=== PATIENT | male | born 1995 | race Hispanic/Latino ===

== ENCOUNTER 2016-04-12 15:05 | Emergency (ER) | payer OTHER ==
[~2016-04-12 15:05] MED LIST: Escitalopram Oxalate PO; LEXA5TAB13 PO; OLAN5TAB PO; no home medications
[2016-04-12 16:28] LABS: MEAN CORPUSCULAR HEMOGLOBIN 31.6 pg (27.0-33.0); MEAN CORPUSCULAR HGB CONC 35.1 g/dl (32.0-36.5); MEAN CORPUSCULAR VOLUME 90.1 fl (80.0-96.0); RED CELL DISTRIBUTION WIDTH 12.6 % (11.5-14.5); WHITE BLOOD COUNT 6.2 K/mm3 (4.0-10.0)
[2016-04-12 16:33] LABS: ALBUMIN 4.6 GM/DL (3.2-5.2); ALBUMIN/GLOBULIN RATIO 1.28 (1.00-1.93); ALKALINE PHOSPHATASE 106 U/L (45-117); ALT/SGPT 23 U/L (12-78); ANION GAP 9 MEQ/L (8-16); AST/SGOT 18 U/L (15-37); BILIRUBIN,DIRECT 0.2 MG/DL (0.0-0.2); BILIRUBIN,TOTAL 0.8 MG/DL (0.2-1.0); BLOOD UREA NITROGEN 18 MG/DL (7-18); CARBON DIOXIDE LEVEL 26 MEQ/L (21-32); CHLORIDE LEVEL 107 MEQ/L (98-107); CREATININE FOR GFR 1.36 MG/DL (0.70-1.30); GLUCOSE, FASTING 92 MG/DL (70-105); POTASSIUM SERUM 3.8 MEQ/L (3.5-5.1); SODIUM LEVEL 142 MEQ/L (136-145); TOTAL PROTEIN 8.2 GM/DL (6.4-8.2)
[2016-04-12 16:40] LABS: CONTROL LINE INT CTR LINE PRESENT; METHADONE URINE NEGATIVE (NEGATIVE); TRICYCLIC ANTIDEPRESS URINE NEGATIVE (NEGATIVE)
--- NOTE | 2016-04-13 00:36 | EDDOCDS ---
Physician Documentation [facility] Name: Tomás Pereyra Age: 20 yrs Sex: Male : 1995 Arrival Date: 04/12/2016 Time: 15:05 Bed OBSERVATION Private MD: Disposition: 04/12/16 21:15 Transfer ordered to [facility]. Diagnosis are Suicidal ideations, Major depressive disorder, recurrent. - Reason for transfer: Higher level of care. - Accepting physician is Dr Maria. - Condition is Stable. - Problem is an ongoing problem. - Symptoms have improved. Historical: - Allergies: no known allergies; - Home Meds: 1. none - PMHx: inpatient BHU (August 2015); - PSHx: none; - Social history: Smoking status: Patient states was never smoker of tobacco. No barriers to communication noted, The patient speaks fluent Upper Sorbian. - Family history: Not pertinent. - : The pt / caregiver states he / she is not on anticoagulants. Home medication list is obtained from the patient. - Exposure Risk Screening:: None identified. Vital Signs: 04/12 15:14 BP 133 / 66; Pulse 67; Resp 18; Temp 98(O); Pulse Ox 98% on R/A; Weight 88.45 kg / 195 mk4 lbs; Height 5 ft. 10 in. (177.80 cm); 20:26 BP 134 / 63; Pulse 72; Resp 18; Temp 97.8(TE); Pulse Ox 98% on R/A; Pain 0/10; rw1 04/13 00:33 BP 124 / 58; Pulse 62; Resp 16; Temp 96.9(O); Pulse Ox 97% on R/A; Pain 0/10; rw1 04/12 15:14 Body Mass Index 27.98 (88.45 kg, 177.80 cm) mk4 MDM: 04/12 15:24 Consult PFS/PSA/Grinder Outside Diameter ordered. br1 15:24 Consult PFS/PSA/Grinder Outside Diameter: Patient's case requires discussion with on-call br1 Psychiatrist ordered. 15:24 PSA/PFS to call Nursing Manager Latin, to enter patient data on [place] Safe Act if patient br1 involuntarily admitted or transferred for SI or HI ordered. 15:24 Confirm accurate psychiatric medication list and times of last dosage ordered. br1 15:24 Detain Pt Until Medically/PFS Cleared ordered. br1 15:26 Acetaminophen Level Ordered. EDMS 15:26 Basic Metabolic Profile Ordered. EDMS 15:26 Complete Blood Count Ordered. EDMS 15:26 Drug Eval Toxicology ED Only Ordered. EDMS 15:26 Ethyl Alcohol (ethanol) Ordered. EDMS 15:26 Liver Profile Ordered. EDMS 15:26 Salicylate Level Ordered. EDMS 15:26 Thyroid Stimulating Hormone Ordered. EDMS 15:45 Consult PFS/PSA/Grinder Outside Diameter complete. mk4 15:45 Consult PFS/PSA/Grinder Outside Diameter: Patient's case requires discussion with on-call mk4 Psychiatrist complete. 15:45 PSA/PFS to call Nursing Manager Latin, to enter patient data on [place] Safe Act if patient mk4 involuntarily admitted or transferred for SI or HI complete. 15:51 Financial registration complete. zo 16:37 REGULAR DIET PLASTIC HILL+DIET ordered. EDMS 17:00 [facility] Payment Agreement was scanned into [employer] and attached to record. zo 17:44 ECG WITH READING ER PHYS+CARDIAG ordered. EDMS 17:47 Acetaminophen Level Reviewed. br1 17:47 Basic Metabolic Profile Reviewed. br1 17:47 Salicylate Level Reviewed. br1 17:47 Complete Blood Count Reviewed. br1 17:47 Drug Eval Toxicology ED Only Reviewed. br1 17:47 Ethyl Alcohol (ethanol) Reviewed. br1 17:47 Liver Profile Reviewed. br1 17:47 Thyroid Stimulating Hormone Reviewed. br1 18:15 Consult PFS/PSA/Socail Worker: Cleared medically for eval ordered. br1 18:21 Other: [facility] S Clinic note was scanned into [employer] and attached to record. jl 18:25 Consult PFS/PSA/Socail Worker: Cleared medically for eval complete. jl 18:58 Transition of care: After a detail discussion of the patient's case, care is br1 transferred to ED Physician, Dr. Humphrey. 22:41 [facility] Legal paperwork was scanned into [employer] and attached to record. jl Signatures: Dispatcher [employer] EDMS Abram Nunez, PSA PSA jl Fermin Earl,CORE FILER CORE FILER rw1 Quoc Son Brian, MD MD br1 Tyrone Humphrey DO DO cs11 Melissa Elizondo RN RN mk4 The chart was reviewed and I authenticate all verbal orders and agree with the evaluation and treatment provided.Attachments: 17:00 [facility] Payment Agreement zo MTDD
--- NOTE | 2016-04-13 00:36 | EDDOCDS ---
Nurse's Notes [facility] Name: Tomás Pereyra Age: 20 yrs Sex: Male : 1995 Arrival Date: 04/12/2016 Time: 15:05 Bed OBSERVATION Private MD: Diagnosis: Suicidal ideations;Major depressive disorder, recurrent Presentation: 04/12 15:12 Presenting complaint: Patient states[facility] feeling of suicidal. Mental Health Triage Level: Level 2: The patient displays active suicidal ideations. Adult Sepsis Screening: The patient does not have new or worsening altered mentation. Patient's respiratory rate is less than 22. Systolic blood pressure is greater than 100. Patient has a qSOFA score of 0- Negative Sepsis Screen. Mental Health Triage Level: Level 2: The patient displays active suicidal ideations. Suicide/Homicide risk assessment- The patient admits to and/or has been reported to be having suicidal ideations. Patient denies SI and HI but presents with another emotional, behavioral or other mental health complaint. The patient reports that he/she has not been admitted to an inpatient mental health facility in the last 30 days. The patient reports that he/she does not have a recent or current history of substance abuse. The patient reports that he/she has a prior history of suicide attempt and/or organized plan. The patient reports that he/she has not experienced a significant life altering event in the last 30 days. The patient reports that he/she lacks adequate social support. The patient reports he/she has no significant chronic medical condition(s). 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 Transition of care: patient was not received from another setting of care. 15:12 Acuity: BJ Level 3 mk4 15:12 Method Of Arrival: Ambulance mk4 Triage Assessment: 15:14 General: Appears in no apparent distress. Pain: Denies pain. HIV screening NA for this mk4 visit Offered previously. Historical: - Allergies: no known allergies; - Home Meds: 1. none - PMHx: inpatient BHU (August 2015); - PSHx: none; - Social history: Smoking status: Patient states was never smoker of tobacco. No barriers to communication noted, The patient speaks fluent American. - Family history: Not pertinent. - : The pt / caregiver states he / she is not on anticoagulants. Home medication list is obtained from the patient. - Exposure Risk Screening:: None identified. Screenin:11 Screening information is obtained from the patient. Fall risk: No risks identified. mk4 Assistance ADL's: requires no assistance with activities of daily living. Abuse/DV Screen: The patient / caregiver reports he/she is: not in a situation that causes fear, pain or injury. Nutritional screening: No deficits noted. Advance Directives: Currently, there is no health care proxy. There is no active DNR order. There is no living will. There is no Power of Customer Energy Specialist. Advance directive information has not previously been placed in an [facility] medical record. home support is adequate. Assessment: 15:11 General: Appears in no apparent distress, Behavior is flat, quiet, pt arrived by EMS mk4 from [facility]. Pain: Denies pain. Neurological: Level of Consciousness is awake, alert. Respiratory: Airway is patent Respiratory effort is even, unlabored, Respiratory pattern is regular. 16:15 General: Appears in no apparent distress. General: Behavior is flat, quiet. mk4 Respiratory: Airway is patent Respiratory effort is even, unlabored. 17:45 General: Appears in no apparent distress, comfortable, Behavior is cooperative, quiet, mk4 escort remains with pt. 18:22 General: Appears in no apparent distress, comfortable, Behavior is cooperative, dinner mk4 tray provided . 18:40 Reassessment: Patient appears in no apparent distress at this time. Patient denies pain mk4 at this time. 19:23 General: Appears in no apparent distress, Behavior is cooperative. Pain: Denies pain. mgs Neurological: Level of Consciousness is awake, alert, Oriented to person, place, time. Cardiovascular: Capillary refill < 3 seconds Heart tones S1 S2 present. Respiratory: Airway is patent Respiratory effort is even, unlabored, Respiratory pattern is regular, symmetrical. Derm: Skin is normal. 20:26 General: Appears in no apparent distress, comfortable, Behavior is appropriate for age, rw1 cooperative, pleasant. Pain: Denies pain. Neurological: Level of Consciousness is awake, alert, obeys commands, Oriented to person, place, time. Respiratory: Airway is patent Respiratory effort is even, unlabored. Derm: Skin is normal. 21:25 Reassessment: Patient appears in no apparent distress at this time. awake resting rw1 quietly on stretcher, safety maintained will monitor.. 22:28 Reassessment: Patient appears in no apparent distress at this time. awake resting rw1 quietly on stretcher, safety maintained will monitor.. 23:29 General: Appears in no apparent distress, comfortable, Behavior is resting quietly on rw1 stretcher, safety maintained. Respiratory: Airway is patent Respiratory effort is even, unlabored. Derm: Skin is normal. 04/13 00:30 General: Appears in no apparent distress, Behavior is cooperative. Neurological: Level mgs of Consciousness is awake, alert, Oriented to person, place, time. Cardiovascular: Capillary refill < 3 seconds. Respiratory: Airway is patent Respiratory effort is even, unlabored, Respiratory pattern is regular, symmetrical. Derm: Skin is normal. Mental Health Eval: 04/12 17:04 Mental health consult is initiated at 16:30. 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 [facility] Behavioral Health: The patient is not an established patient of [facility] Behavioral Health. Referral Information: Evaluation referral is generated by the patient's therapist [facility]. The patient was referred for evaluation because he was seen today at [facility] by his therapist, where he admitted to having SI, with plan & intent. Subjective: The patients chief complaint is "I admitted some thoughts I've been having to my therapist today". Delusions are denied. Patient's mood is depressed & hopeless. Hallucinations are denied. Patient saw his therapist today, where he reports admitting to having active thoughts of suicide, including a plan. He states that he has been depressed on and off since his teenaged years. This depression has included thoughts of suicide, however never to the point of planning his before now. 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 He states that he formulated this plan late last week, knowing that he'd have all of this week to get his affairs in order before leaving. He states that this was precipitated by his notification late last week that his application to [place] had been denied. He describes feeling hopeless, with no other options. 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 He denies h/o deployments & has none "officially" scheduled. He denies having any thoughts of harming others, however clearly has suicidal plan & intent. Mental Health history: depression, sleep disturbance, suicide ideation with no attempts, gestures or self-injury Mental Health Admissions: [facility]: 08/2015 Current Outpatient Mental Health Services: Psychiatrist / Agency: [facility]. Therapist / Agency: [facility]. Current living environment is The patient currently lives in a [facility]. Patient presents to Emergency Department with the following symptoms within the past 2 weeks: depressed mood, feelings of helplessness/hopelessness, sleep disturbance - erratic suicidal ideation with plan for gunshot. Substance abuse: Pt denies. Mental status exam: Patients appearance is appropriate, Patient's behavior is cooperative, Speech is unspontaneous Affect is restricted. Mood is depressed. Hallucinations are denied. Appetite is normal. Memory is good. Energy level is poor. Content of thought is normal. Thought process is intact. Cognitive level is oriented to person, place, time and situation Patient's insight is fair. Judgement is poor. Rapport with interviewer is good. Suicidal Ideation present with a plan to kill self by gunshot. Homicidal ideation is denied. Disposition: Medically cleared for disposition by David Lin MD Psychiatric Consult is performed by phone with Dr Bob Harrington MD. [facility] Admission Criteria: The patient is experiencing suicidal ideation. The patient requires continuous observation and/or control to protect self, others or property. The patient's care requires a multi-modal treatment plan under close supervision and coordination due to the complexity and severity of the patient's symptoms. Legal Status: Patient's legal status will be [facility] Services admission: 937. [place] Safe Act: [place] Safe Act is applicable to this patient. The patient poses a risk to self or other and the Nursing Signal Repairer has been notified. He/She will enter the patient's data. DSM-V Differential Diagnosis: Major Depressive Disorder recurrent episode (F33.0) severe (F33.2). Insurance Pre-Certification: Not Required. 18:22 Awaiting: bed availability. Chart has [facility] to [facility] [place], which has jl advised that they have 2 beds available & 2 referrals from other hospitals to be reviewed ahead of this patient. Other surrounding area hospitals are currently at capacity. Patient to remain in ED, pending bed availability. 18:25 Narrative: Patient's Jorge may be contacted as follows: 1LT Mela Schofield ([phone]). jl 22:23 Narrative: Patient has been accepted at the [facility] [place] on 2PC. [facility] ETA is jl 12:15-12:30. Vital Signs: 15:14 BP 133 / 66; Pulse 67; Resp 18; Temp 98(O); Pulse Ox 98% on R/A; Weight 88.45 kg; mk4 Height 5 ft. 10 in. (177.80 cm); 20:26 BP 134 / 63; Pulse 72; Resp 18; Temp 97.8(TE); Pulse Ox 98% on R/A; Pain 0/10; rw1 04/13 00:33 BP 124 / 58; Pulse 62; Resp 16; Temp 96.9(O); Pulse Ox 97% on R/A; Pain 0/10; rw1 04/12 15:14 Body Mass Index 27.98 (88.45 kg, 177.80 cm) 4 Vitals: 04/12 15:14 Log In Time N/A - ambulance arrival. 4 ED Course: 15:07 Patient visited by July Gibson. mm15 15:07 Patient moved to [facility] mm15 15:11 David Lin MD is Attending Physician. br1 15:11 Patient moved to [facility] rb 15:11 The patient / caregiver is instructed regarding the plan of care and ED course. mk4 15:11 No IV's were initiated during this patient's visit. No procedures done that require [facility] assistance. 15:14 Triage Initiated mk4 15:31 Patient visited by Junaid Maza. dpm 15:31 Pt greeted and oriented to ED. Patient advised of names of staff involved in care, dpm location of call dum[place], wait times and NPO status. Patient has correct armband on for positive identification. Placed in gown. Placed in psych safe attire. Bed in low position. Security observing. Property removed, inventory done, secured in belongings bag- placed in locked locker. Placed in locker 4. Psych Safety Check: Location: Psych Room. Visual Assessment: Cooperative. 15:40 Patient visited by David Lin MD. br1 15:45 Patient visited by Junaid Maza. dpm 15:45 Acetaminophen Level Sent. mk4 15:45 Basic Metabolic Profile Sent. mk4 15:45 Complete Blood Count Sent. mk4 15:45 Ethyl Alcohol (ethanol) Sent. mk4 15:45 Liver Profile Sent. mk4 15:45 Salicylate Level Sent. mk4 15:45 Thyroid Stimulating Hormone Sent. mk4 16:01 Patient visited by Junaid Maza. dpm 16:09 Drug Eval Toxicology ED Only Sent. dpm 16:16 Patient visited by Junaid Maza. dpm 16:31 Patient visited by Junaid Maza. dpm 16:48 Patient visited by Abram Nunez PSA. jl 17:00 [facility] Payment Agreement was scanned into [employer] and attached to record. zo 17:02 Patient visited by Junaid Maza. dpm 17:20 Patient visited by Junaid Maza. dpm 17:35 Patient visited by Junaid Maza. dpm 17:53 Patient visited by Junaid Maza. dpm 18:08 Patient visited by Junaid Maza. dpm 18:17 Patient moved to OBSERVATION br1 18:21 Other: [facility] S Clinic note was scanned into [employer] and attached to record. jl 18:35 Patient visited by Junaid Maza. dpm 18:53 Patient visited by Junaid Maza. dpm 19:03 Patient visited by Austin Yeh. tr 19:14 Patient visited by Austin Yeh. tr 19:19 Aries Pickett,ROMINA is Primary Nurse. mgs 19:24 Patient visited by Aries Pickett RN. mgs 19:29 Patient visited by Austin Yeh. tr 19:34 Patient visited by Austin Yeh. tr 19:49 Attending Physician role handed off by David Lin MD cs11 19:49 Tyrone Humphrey DO is Attending Physician. cs11 20:01 Patient visited by Austin Yeh. tr 20:18 Patient visited by Austin Yeh. tr 20:32 Patient visited by Austin Yeh. tr 20:46 Patient visited by Austin Yeh. tr 21:00 Patient visited by Austin Yeh. tr 21:14 Patient visited by Austin Yeh. tr 21:30 Patient visited by Tim. Rao tr 22:00 Patient visited by Tim. Rao tr 22:28 Patient visited by Tim. Rao tr 22:41 [facility] Legal paperwork was scanned into [employer] and attached to record. jl 22:45 Patient visited by Austin Yeh. tr 23:01 Patient visited by Tim. Rao tr 23:17 Patient visited by Tim. Rao tr 23:30 Patient visited by Tim. Rao tr 23:44 Patient visited by Tim. Rao tr 04/13 00:00 Patient visited by Austin Yeh. tr 00:18 Patient visited by Tim. Rao tr 00:31 Patient visited by Aries Pickett RN. mgs Attachments: 22:41 [facility] Legal paperwork jl Order Results: Lab Order: Acetaminophen Level; SPEC'M 04/12/16 14:52 Test: ACETAMINOPHEN LEVEL; Value: < 2.0; Range: 10.0-30.0; Abnormal: Below low normal; Units: UG/ML; Status: F Lab Order: Basic Metabolic Profile; SPEC'M 04/12/16 14:52 Test: GLUCOSE, FASTING; Value: 92; Range: 70-105; Units: MG/DL; Status: F Test: BLOOD UREA NITROGEN; Value: 18; Range: 7-18; Units: MG/DL; Status: F Test: CREATININE FOR GFR; Value: 1.36; Range: 0.70-1.30; Abnormal: Above high normal; Units: MG/DL; Status: F Test: SODIUM LEVEL; Value: 142; Range: 136-145; Units: MEQ/L; Status: F Test: POTASSIUM SERUM; Value: 3.8; Range: 3.5-5.1; Units: MEQ/L; Status: F Test: CHLORIDE LEVEL; Value: 107; Range: 98-107; Units: MEQ/L; Status: F Test: CARBON DIOXIDE LEVEL; Value: 26; Range: 21-32; Units: MEQ/L; Status: F Test: ANION GAP; Value: 9; Range: 8-16; Units: MEQ/L; Status: F Test: CALCIUM LEVEL; Value: 9.0; Range: 8.5-10.1; Units: MG/DL; Status: F Lab Order: Complete Blood Count; SPEC'M 04/12/16 14:52 Test: WHITE BLOOD COUNT; Value: 6.2; Range: 4.0-10.0; Units: K/mm3; Status: F Test: RED BLOOD COUNT; Value: 4.94; Range: 4.30-6.10; Units: M/mm3; Status: F Test: HEMOGLOBIN; Value: 15.6; Range: 14.0-18.0; Units: g/dl; Status: F Test: HEMATOCRIT; Value: 44.6; Range: 42.0-52.0; Units: %; Status: F Test: MEAN CORPUSCULAR VOLUME; Value: 90.1; Range: 80.0-96.0; Units: fl; Status: F Test: MEAN CORPUSCULAR HEMOGLOBIN; Value: 31.6; Range: 27.0-33.0; Units: pg; Status: F Test: MEAN CORPUSCULAR HGB CONC; Value: 35.1; Range: 32.0-36.5; Units: g/dl; Status: F Test: RED CELL DISTRIBUTION WIDTH; Value: 12.6; Range: 11.5-14.5; Units: %; Status: F Test: PLATELET COUNT, AUTOMATED; Value: 271; Range: 150-450; Units: k/mm3; Status: F Lab Order: Drug Eval Toxicology ED Only; SPEC'M 04/12/16 15:36 Test: AMPHETAMINES LEVEL URINE; Value: NEGATIVE; Range: NEGATIVE; Status: F Test: BARBITURATES URINE; Value: NEGATIVE; Range: NEGATIVE; Status: F Test: BENZODIAZEPINES URINE; Value: NEGATIVE; Range: NEGATIVE; Status: F Test: CANNABINOIDS URINE; Value: NEGATIVE; Range: NEGATIVE; Status: F Test: COCAINE METABOLITE URINE; Value: NEGATIVE; Range: NEGATIVE; Status: F Test: METHADONE URINE; Value: NEGATIVE; Range: NEGATIVE; Status: F Test: OPIATES URINE; Value: NEGATIVE; Range: NEGATIVE; Status: F Test: TRICYCLIC ANTIDEPRESS URINE; Value: NEGATIVE; Range: NEGATIVE; Status: F Test Note: ; ALL PRESUMPTIVE POSITIVE FINDINGS ARE UNCONFIRMED NORMAL VALUES THRESHOLD IN NG/ML AMPHETAMINES 1000 METHAMPHETAMINES 1000 BARBITURATES 300 BENZODIAZEPINES 300 CANNABINOIDS (THC) 50 COCAINE METABOLITE 300 METHADONE 300 OPIATES 300 PHENCYCLIDINE 25 TRICYCLIC ANTIDEPRESSANTS 1000 RESULTS ARE FOR MEDICAL PURPOSES ONLY. ALL URINE SPECIMENS WILL BE SAVED FOR 3 DAYS. IF CONFIRMATION OF A PRESUMPTIVE POSTIVE SCREEN RESULT IS DESIRED, CALL CHEMISTRY ([phone]) AND REQUEST URINE TO BE SENT TO REFERENCE LAB. FOR A LIST OF CLOSELY RELATED COMPOUNDS PLEASE CALL THE LAB. Lab Order: Ethyl Alcohol (ethanol); SPEC' 04/12/16 14:52 Test: ETHYL ALCOHOL (ETHANOL); Value: < 0.003; Range: 0.000-0.010; Units: %; Status: F Lab Order: Liver Profile; [facility]' 04/12/16 14:52 Test: AST/SGOT; Value: 18; Range: 15-37; Units: U/L; Status: F Test: ALT/SGPT; Value: 23; Range: 12-78; Units: U/L; Status: F Test: ALKALINE PHOSPHATASE; Value: 106; Range: 45-117; Units: U/L; Status: F Test: BILIRUBIN,TOTAL; Value: 0.8; Range: 0.2-1.0; Units: MG/DL; Status: F Test: BILIRUBIN,DIRECT; Value: 0.2; Range: 0.0-0.2; Units: MG/DL; Status: F Test: TOTAL PROTEIN; Value: 8.2; Range: 6.4-8.2; Units: GM/DL; Status: F Test: ALBUMIN; Value: 4.6; Range: 3.2-5.2; Units: GM/DL; Status: F Test: ALBUMIN/GLOBULIN RATIO; Value: 1.28; Range: 1.00-1.93; Status: F Lab Order: Salicylate Level; [facility]' 04/12/16 14:52 Test: SALICYLATE LEVEL; Value: < 1.7; Range: 5.0-30.0; Abnormal: Below low normal; Units: MG/DL; Status: F Lab Order: Thyroid Stimulating Hormone; SPEC' 04/12/16 14:52 Test: THYROID STIMULATING HORMONE; Value: 2.110; Range: 0.463-3.98; Units: uIU/ML; Status: F Outcome: 21:15 ER care complete, transfer ordered by Provider. cs11 22:16 Admission hand-off: Report called to Chinedu Carr RN at [facility]. mgs 04/13 00:33 Discharge Assessment: Patient awake, alert and oriented x 3. No cognitive and/or rw1 functional deficits noted. Patient verbalized understanding of disposition instructions. patient administered narcotics - no. The following High Risk Discharge criteria are identified: Transferred to [facility] [place]. by EMS ground [facility] ambulance report to accompanying personnel Christian Palmer EMT and [employer] Electrical Person. Condition: stable. No special radiology studies were completed. 00:36 Patient left the ED. rw1 Signatures: Josselin Lerma, BLANCO PSA rb Abram Nunez, PSA PSA jl Austin Yeh Robert,PRESSER HAND PRESSER HAND rw1 Quoc Son Brian, MD MD br1 Junaid Maza dpTyrone Perez, DO cs11 July Gibson mm15 Melissa Elizondo RN RN mk4 Aries Pickett,ROMINA RN mgs Corrections: (The following items were deleted from the chart) 04/12 18:41 18:22 General: Appears in no apparent distress, comfortable, Behavior is cooperative, mk4 dinner tray provided . mk4 TONY
--- NOTE | 2016-04-14 09:59 | ECGEPIP ---
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
--- NOTE | 2016-04-15 01:38 | EDDOCDS ---
Physician Documentation [facility] Name: Tomás Pereyra Age: 20 yrs Sex: Male : 1995 Arrival Date: 04/12/2016 Time: 15:05 Bed OBSERVATION Private MD: Disposition: 04/12/16 21:15 Transfer ordered to [facility]. Diagnosis are Suicidal ideations, Major depressive disorder, recurrent. - Reason for transfer: Higher level of care. - Accepting physician is Dr Maria. - Condition is Stable. - Problem is an ongoing problem. - Symptoms have improved. Historical: - Allergies: no known allergies; - Home Meds: 1. none - PMHx: inpatient BHU (August 2015); - PSHx: none; - Social history: Smoking status: Patient states was never smoker of tobacco. No barriers to communication noted, The patient speaks fluent Faroese. - Family history: Not pertinent. - : The pt / caregiver states he / she is not on anticoagulants. Home medication list is obtained from the patient. - Exposure Risk Screening:: None identified. Vital Signs: 04/12 15:14 BP 133 / 66; Pulse 67; Resp 18; Temp 98(O); Pulse Ox 98% on R/A; Weight 88.45 kg / 195 mk4 lbs; Height 5 ft. 10 in. (177.80 cm); 20:26 BP 134 / 63; Pulse 72; Resp 18; Temp 97.8(TE); Pulse Ox 98% on R/A; Pain 0/10; rw1 04/13 00:33 BP 124 / 58; Pulse 62; Resp 16; Temp 96.9(O); Pulse Ox 97% on R/A; Pain 0/10; rw1 04/12 15:14 Body Mass Index 27.98 (88.45 kg, 177.80 cm) mk4 MDM: 04/12 15:24 Consult PFS/PSA/Hearse Driver ordered. br1 15:24 Consult PFS/PSA/Hearse Driver: Patient's case requires discussion with on-call br1 Psychiatrist ordered. 15:24 PSA/PFS to call Nursing Second Watch Sergeant, to enter patient data on [place] Safe Act if patient br1 involuntarily admitted or transferred for SI or HI ordered. 15:24 Confirm accurate psychiatric medication list and times of last dosage ordered. br1 15:24 Detain Pt Until Medically/PFS Cleared ordered. br1 15:26 Acetaminophen Level Ordered. EDMS 15:26 Basic Metabolic Profile Ordered. EDMS 15:26 Complete Blood Count Ordered. EDMS 15:26 Drug Eval Toxicology ED Only Ordered. EDMS 15:26 Ethyl Alcohol (ethanol) Ordered. EDMS 15:26 Liver Profile Ordered. EDMS 15:26 Salicylate Level Ordered. EDMS 15:26 Thyroid Stimulating Hormone Ordered. EDMS 15:45 Consult PFS/PSA/Hearse Driver complete. mk4 15:45 Consult PFS/PSA/Hearse Driver: Patient's case requires discussion with on-call mk4 Psychiatrist complete. 15:45 PSA/PFS to call Nursing Second Watch Sergeant, to enter patient data on [place] Safe Act if patient mk4 involuntarily admitted or transferred for SI or HI complete. 15:51 Financial registration complete. zo 16:37 REGULAR DIET PLASTIC HILL+DIET ordered. EDMS 17:00 [facility] [place] into [employer] and attached to record. zo 17:44 ECG WITH READING ER PHYS+CARDIAG ordered. EDMS 17:47 Acetaminophen Level Reviewed. br1 17:47 Basic Metabolic Profile Reviewed. br1 17:47 Salicylate Level Reviewed. br1 17:47 Complete Blood Count Reviewed. br1 17:47 Drug Eval Toxicology ED Only Reviewed. br1 17:47 Ethyl Alcohol (ethanol) Reviewed. br1 17:47 Liver Profile Reviewed. br1 17:47 Thyroid Stimulating Hormone Reviewed. br1 18:15 Consult PFS/PSA/Socail Worker: Cleared medically for eval ordered. br1 18:21 Other: [facility] note was scanned into [employer] and attached to record. jl 18:25 Consult PFS/PSA/Socail Worker: Cleared medically for eval complete. jl 18:58 Transition of care: After a detail discussion of the patient's case, care is br1 transferred to ED Physician, Dr. Humphrey. 22:41 [facility] Legal paperwork was scanned into [employer] and attached to record. jl Signatures: Dispatcher [employer] EDMS Abram Nunez, PSA PSA jl Fermin Earl,MANAGER FLOOR MANAGER FLOOR rw1 Quoc Son Brian, MD MD br1 Tyrone Humphrey DO DO cs11 Melissa Elizondo RN RN mk4 The chart was reviewed and I authenticate all verbal orders and agree with the evaluation and treatment provided.Attachments: 17:00 [facility] Payment Agreement zo Chart Complete MTDD
--- NOTE | 2016-04-15 01:38 | EDDOCDS ---
Physician Documentation [facility] Name: Tomás Pereyra Age: 20 yrs Sex: Male : 1995 Arrival Date: 04/12/2016 Time: 15:05 Bed OBSERVATION Private MD: Disposition: 04/12/16 21:15 Transfer ordered to [facility]. Diagnosis are Suicidal ideations, Major depressive disorder, recurrent. - Reason for transfer: Higher level of care. - Accepting physician is Dr Maria. - Condition is Stable. - Problem is an ongoing problem. - Symptoms have improved. Historical: - Allergies: no known allergies; - Home Meds: 1. none - PMHx: inpatient BHU (August 2015); - PSHx: none; - Social history: Smoking status: Patient states was never smoker of tobacco. No barriers to communication noted, The patient speaks fluent Romanian. - Family history: Not pertinent. - : The pt / caregiver states he / she is not on anticoagulants. Home medication list is obtained from the patient. - Exposure Risk Screening:: None identified. Vital Signs: 04/12 15:14 BP 133 / 66; Pulse 67; Resp 18; Temp 98(O); Pulse Ox 98% on R/A; Weight 88.45 kg / 195 mk4 lbs; Height 5 ft. 10 in. (177.80 cm); 20:26 BP 134 / 63; Pulse 72; Resp 18; Temp 97.8(TE); Pulse Ox 98% on R/A; Pain 0/10; rw1 04/13 00:33 BP 124 / 58; Pulse 62; Resp 16; Temp 96.9(O); Pulse Ox 97% on R/A; Pain 0/10; rw1 04/12 15:14 Body Mass Index 27.98 (88.45 kg, 177.80 cm) mk4 MDM: 04/12 15:24 Consult PFS/PSA/Forest Fire Equipment Operator ordered. br1 15:24 Consult PFS/PSA/Forest Fire Equipment Operator: Patient's case requires discussion with on-call br1 Psychiatrist ordered. 15:24 PSA/PFS to call Nursing Beach Patrol Lieutenant, to enter patient data [place] Safe [place] if patient br1 involuntarily admitted or transferred for SI or HI ordered. 15:24 Confirm accurate psychiatric medication list and times of last dosage ordered. br1 15:24 Detain Pt Until Medically/PFS Cleared ordered. br1 15:26 Acetaminophen Level Ordered. EDMS 15:26 Basic Metabolic Profile Ordered. EDMS 15:26 Complete Blood Count Ordered. EDMS 15:26 Drug Eval Toxicology ED Only Ordered. EDMS 15:26 Ethyl Alcohol (ethanol) Ordered. EDMS 15:26 Liver Profile Ordered. EDMS 15:26 Salicylate Level Ordered. EDMS 15:26 Thyroid Stimulating Hormone Ordered. EDMS 15:45 Consult PFS/PSA/Forest Fire Equipment Operator complete. mk4 15:45 Consult PFS/PSA/Forest Fire Equipment Operator: Patient's case requires discussion with on-call mk4 Psychiatrist complete. 15:45 PSA/PFS to call Nursing Beach Patrol Lieutenant, to enter patient data on [place] Safe Act if patient mk4 involuntarily admitted or transferred for SI or HI complete. 15:51 Financial registration complete. zo 16:37 REGULAR DIET PLASTIC HILL+DIET ordered. EDMS 17:00 [facility] [place] was [place] into [employer] and attached to record. zo 17:44 ECG WITH READING ER PHYS+CARDIAG ordered. EDMS 17:47 Acetaminophen Level Reviewed. br1 17:47 Basic Metabolic Profile Reviewed. br1 17:47 Salicylate Level Reviewed. br1 17:47 Complete Blood Count Reviewed. br1 17:47 Drug Eval Toxicology ED Only Reviewed. br1 17:47 Ethyl Alcohol (ethanol) Reviewed. br1 17:47 Liver Profile Reviewed. br1 17:47 Thyroid Stimulating Hormone Reviewed. br1 18:15 Consult PFS/PSA/Socail Worker: Cleared medically for eval ordered. br1 18:21 Other: [facility] note was scanned into [employer] and attached to record. jl 18:25 Consult PFS/PSA/Socail Worker: Cleared medically for eval complete. jl 18:58 Transition of care: After a detail discussion of the patient's case, care is br1 transferred to ED Physician, Dr. Humphrey. 22:41 [facility] Legal paperwork was scanned into [employer] and attached to record. jl Signatures: Dispatcher [employer] EDMS Abram Nunez, PSA PSA jl Fermin Earl,PARIMUTUEL CLERK PARIMUTUEL CLERK rw1 Quoc Son Brian, MD MD br1 Tyrone Humphrey DO DO cs11 Melissa Elizondo RN RN mk4 The chart was reviewed and I authenticate all verbal orders and agree with the evaluation and treatment provided.Attachments: 17:00 [facility] Payment Agreement zo Chart Complete MTDD
--- NOTE | 2016-04-15 01:38 | EDDOCDS ---
Nurse's Notes [facility] Name: Lucero Pereyra Age: 20 yrs Sex: Male : 1995 Arrival Date: 04/12/2016 Time: 15:05 Bed OBSERVATION Private MD: Diagnosis: Suicidal ideations;Major depressive disorder, recurrent Presentation: 04/12 15:12 Presenting complaint: Patient states: [email or web address] having mk4 feeling of suicidal. Mental Health Triage Level: Level 2: The patient displays active suicidal ideations. Adult Sepsis Screening: The patient does not have new or worsening altered mentation. Patient's respiratory rate is less than 22. Systolic blood pressure is greater than 100. Patient has a qSOFA score of 0- Negative Sepsis Screen. Mental Health Triage Level: Level 2: The patient displays active suicidal ideations. Suicide/Homicide risk assessment- The patient admits to and/or has been reported to be having suicidal ideations. Patient denies SI and HI but presents with another emotional, behavioral or other mental health complaint. The patient reports that he/she has not been admitted to an inpatient mental health facility in the last 30 days. The patient reports that he/she does not have a recent or current history of substance abuse. The patient reports that he/she has a prior history of suicide attempt and/or organized plan. The patient reports that he/she has not experienced a significant life altering event in the last 30 days. The patient reports that he/she lacks adequate social support. The patient reports he/she has no significant chronic medical condition(s). 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 Transition of care: patient was not received from another setting of care. 15:12 Acuity: BJ Level 3 mk4 15:12 Method Of Arrival: Ambulance mk4 Triage Assessment: 15:14 General: Appears in no apparent distress. Pain: Denies pain. HIV screening NA for this mk4 visit Offered previously. Historical: - Allergies: no known allergies; - Home Meds: 1. none - PMHx: inpatient [facility] (August 2015); - PSHx: none; - Social history: Smoking status: Patient states was never smoker of tobacco. No barriers to communication noted, The patient speaks fluent Sudanese. - Family history: Not pertinent. - : The pt / caregiver states he / she is not on anticoagulants. Home medication list is obtained from the patient. - Exposure Risk Screening:: None identified. Screenin:11 Screening information is obtained from the patient. Fall risk: No risks identified. mk4 Assistance ADL's: requires no assistance with activities of daily living. Abuse/DV Screen: The patient / caregiver reports he/she is: not in a situation that causes fear, pain or injury. Nutritional screening: No deficits noted. Advance Directives: Currently, there is no health care proxy. There is no active DNR order. There is no living will. There is no Power of [employer]. Advance directive information has not previously been placed in an [facility] medical record. home support is adequate. Assessment: 15:11 General: Appears in no apparent distress, Behavior is flat, quiet, pt arrived by EMS mk4 from [facility]. Pain: Denies pain. Neurological: Level of Consciousness is awake, alert. Respiratory: Airway is patent Respiratory effort is even, unlabored, Respiratory pattern is regular. 16:15 General: Appears in no apparent distress. General: Behavior is flat, quiet. mk4 Respiratory: Airway is patent Respiratory effort is even, unlabored. 17:45 General: Appears in no apparent distress, comfortable, Behavior is cooperative, quiet, mk4 escort remains with pt. 18:22 General: Appears in no apparent distress, comfortable, Behavior is cooperative, dinner mk4 tray provided . 18:40 Reassessment: Patient appears in no apparent distress at this time. Patient denies pain mk4 at this time. 19:23 General: Appears in no apparent distress, Behavior is cooperative. Pain: Denies pain. mgs Neurological: Level of Consciousness is awake, alert, Oriented to person, place, time. Cardiovascular: Capillary refill < 3 seconds Heart tones S1 S2 present. Respiratory: Airway is patent Respiratory effort is even, unlabored, Respiratory pattern is regular, symmetrical. Derm: Skin is normal. 20:26 General: Appears in no apparent distress, comfortable, Behavior is appropriate for age, rw1 cooperative, pleasant. Pain: Denies pain. Neurological: Level of Consciousness is awake, alert, obeys commands, Oriented to person, place, time. Respiratory: Airway is patent Respiratory effort is even, unlabored. Derm: Skin is normal. 21:25 Reassessment: Patient appears in no apparent distress at this time. awake resting rw1 quietly on stretcher, safety maintained will monitor.. 22:28 Reassessment: Patient appears in no apparent distress at this time. awake resting rw1 quietly on stretcher, safety maintained will monitor.. 23:29 General: Appears in no apparent distress, comfortable, Behavior is resting quietly on rw1 stretcher, safety maintained. Respiratory: Airway is patent Respiratory effort is even, unlabored. Derm: Skin is normal. 04/13 00:30 General: Appears in no apparent distress, Behavior is cooperative. Neurological: Level mgs of Consciousness is awake, alert, Oriented to person, place, time. Cardiovascular: Capillary refill < 3 seconds. Respiratory: Airway is patent Respiratory effort is even, unlabored, Respiratory pattern is regular, symmetrical. Derm: Skin is normal. Mental Health Eval: 04/12 17:04 Mental health consult is initiated at 16:30. 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 [facility] Behavioral Health: The patient is not an established patient of [facility] Behavioral Health. Referral Information: Evaluation referral is generated by the patient's therapist [facility]. The patient was referred for evaluation because he was seen today at [facility] by his therapist, where he admitted to having SI, with plan & intent. Subjective: The patients chief complaint is "I admitted some thoughts I've been having to my therapist today". Delusions are denied. Patient's mood is depressed & hopeless. Hallucinations are denied. Patient saw his therapist today, where he reports admitting to having active thoughts of suicide, including a plan. He states that he has been depressed on and off since his teenaged years. This depression has included thoughts of suicide, however never to the point of planning his before now. 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 He states that he formulated this plan late last week, knowing that he'd have all of this week to get his affairs in order before leaving. He states that this was precipitated by his notification late last week that his application to [place] had been denied. He describes feeling hopeless, with no other options. 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 He denies h/o deployments & has none "officially" scheduled. He denies having any thoughts of harming others, however clearly has suicidal plan & intent. Mental Health history: depression, sleep disturbance, suicide ideation with no attempts, gestures or self-injury Mental Health Admissions: [facility]: 08/2015 Current Outpatient Mental Health Services: Psychiatrist / Agency: [facility]. Therapist / Agency: [facility]. Current living environment is The patient currently lives in [facility]. Patient presents to Emergency Department with the following symptoms within the past 2 weeks: depressed mood, feelings of helplessness/hopelessness, sleep disturbance - erratic suicidal ideation with plan for gunshot. Substance abuse: Pt denies. Mental status exam: Patients appearance is appropriate, Patient's behavior is cooperative, Speech is unspontaneous Affect is restricted. Mood is depressed. Hallucinations are denied. Appetite is normal. Memory is good. Energy level is poor. Content of thought is normal. Thought process is intact. Cognitive level is oriented to person, place, time and situation Patient's insight is fair. Judgement is poor. Rapport with interviewer is good. Suicidal Ideation present with a plan to kill self by gunshot. Homicidal ideation is denied. Disposition: Medically cleared for disposition by Luci Lin MD Psychiatric Consult is performed by phone with Dr Bob Harrington MD. [facility] Admission Criteria: The patient is experiencing suicidal ideation. The patient requires continuous observation and/or control to protect self, others or property. The patient's care requires a multi-modal treatment plan under close supervision and coordination due to the complexity and severity of the patient's symptoms. Legal Status: Patient's legal status will be [facility] admission: 937. [place] Safe Act: [place] Safe Act is applicable to this patient. The patient poses a risk to self or other and the Nursing Petroleum Engineer has been notified. He/She will enter the patient's data. DSM-V Differential Diagnosis: Major Depressive Disorder recurrent episode (F33.0) severe (F33.2). Insurance Pre-Certification: Not Required. 18:22 Awaiting: bed availability. Chart has [facility] to the [facility] [place], which has jl advised that they have 2 beds available & 2 referrals from other hospitals to be reviewed ahead of this patient. Other surrounding area hospitals are currently at capacity. Patient to remain in ED, pending bed availability. 18:25 Narrative: Patient's Jorge may be contacted as follows: 1LT Mela Schofield ([phone]). jl 22:23 Narrative: Patient has been accepted at the [facility] [place] on 2PC. [facility] ETA is jl 12:15-12:30. Vital Signs: 15:14 BP 133 / 66; Pulse 67; Resp 18; Temp 98(O); Pulse Ox 98% on R/A; Weight 88.45 kg; mk4 Height 5 ft. 10 in. (177.80 cm); 20:26 BP 134 / 63; Pulse 72; Resp 18; Temp 97.8(TE); Pulse Ox 98% on R/A; Pain 0/10; rw1 04/13 00:33 BP 124 / 58; Pulse 62; Resp 16; Temp 96.9(O); Pulse Ox 97% on R/A; Pain 0/10; rw1 04/12 15:14 Body Mass Index 27.98 (88.45 kg, 177.80 cm) 4 Vitals: 04/12 15:14 Log In Time N/A - ambulance arrival. 4 ED Course: 15:07 Patient visited by July Gibson. mm15 15:07 Patient moved to [facility] mm15 15:11 Luci Lin MD is Attending Physician. br1 15:11 Patient moved to [facility] rb 15:11 The patient / caregiver is instructed regarding the plan of care and ED course. mk4 15:11 No IV's were initiated during this patient's visit. No procedures done that require [facility] assistance. 15:14 Triage Initiated mk4 15:31 Patient visited by Junaid Maza. dpm 15:31 Pt greeted and oriented to ED. Patient advised of names of staff involved in care, dpm location of call [place], wait times and NPO status. Patient has correct armband on for positive identification. Placed in gown. Placed in psych safe attire. Bed in low position. Security observing. Property removed, inventory done, secured in belongings bag- placed in locked locker. Placed in locker 4. Psych Safety Check: Location: Psych Room. Visual Assessment: Cooperative. 15:40 Patient visited by Luci Lin MD. br1 15:45 Patient visited by Junaid Maza. dpm 15:45 Acetaminophen Level Sent. mk4 15:45 Basic Metabolic Profile Sent. mk4 15:45 Complete Blood Count Sent. mk4 15:45 Ethyl Alcohol (ethanol) Sent. mk4 15:45 Liver Profile Sent. mk4 15:45 Salicylate Level Sent. mk4 15:45 Thyroid Stimulating Hormone Sent. mk4 16:01 Patient visited by Junaid Maza. dpm 16:09 Drug Eval Toxicology ED Only Sent. dpm 16:16 Patient visited by Junaid Maza. dpm 16:31 Patient visited by Junaid Maza. dpm 16:48 Patient visited by Abram Nunez PSA. jl 17:00 [facility] Payment Agreement was scanned into [employer] and attached to record. zo 17:02 Patient visited by Junaid Maza. dpm 17:20 Patient visited by Junaid Maza. dpm 17:35 Patient visited by Junaid Maza. dpm 17:53 Patient visited by Junaid Maaz. dpm 18:08 Patient visited by Junaid Maza. dpm 18:17 Patient moved to OBSERVATION br1 18:21 Other: FD S Clinic note was scanned into [employer] and attached to record. jl 18:35 Patient visited by Junaid Maza. dpm 18:53 Patient visited by Junaid Maza. dpm 19:03 Patient visited by Austin Yeh. tr 19:14 Patient visited by Austin Yeh. tr 19:19 Aries Pickett,ROMINA is Primary Nurse. mgs 19:24 Patient visited by Aries Pickett RN. mgs 19:29 Patient visited by Austin Yeh. tr 19:34 Patient visited by Austin Yeh. tr 19:49 Attending Physician role handed off by Luci Lin MD cs11 19:49 Tyrone Humphrey DO is Attending Physician. cs11 20:01 Patient visited by Austin Yeh. tr 20:18 Patient visited by Austin Yeh. tr 20:32 Patient visited by Austin Yeh. tr 20:46 Patient visited by Austin Yeh. tr 21:00 Patient visited by Austin Yeh. tr 21:14 Patient visited by Austin Yeh. tr 21:30 Patient visited by Tim. Rao tr 22:00 Patient visited by Tim. Rao tr 22:28 Patient visited by Tim. Rao tr 22:41 [facility] Legal paperwork was scanned into [employer] and attached to record. jl 22:45 Patient visited by Tim. Rao tr 23:01 Patient visited by Tim. Rao tr 23:17 Patient visited by Tim. Rao tr 23:30 Patient visited by Tim. Rao tr 23:44 Patient visited by Tim. Rao tr 04/13 00:00 Patient visited by Tim. Rao tr 00:18 Patient visited by Tim. Rao tr 00:31 Patient visited by Aries Pickett RN. mgs 04/14 10:05 EKG-ADULT Returned. EDMS Attachments: 22:41 [facility] Legal paperwork jl Order Results: Lab Order: Acetaminophen Level; SPEC'M 04/12/16 14:52 Test: ACETAMINOPHEN LEVEL; Value: < 2.0; Range: 10.0-30.0; Abnormal: Below low normal; Units: UG/ML; Status: F Lab Order: Basic Metabolic Profile; SPEC'M 04/12/16 14:52 Test: GLUCOSE, FASTING; Value: 92; Range: 70-105; Units: MG/DL; Status: F Test: BLOOD UREA NITROGEN; Value: 18; Range: 7-18; Units: MG/DL; Status: F Test: CREATININE FOR GFR; Value: 1.36; Range: 0.70-1.30; Abnormal: Above high normal; Units: MG/DL; Status: F Test: SODIUM LEVEL; Value: 142; Range: 136-145; Units: MEQ/L; Status: F Test: POTASSIUM SERUM; Value: 3.8; Range: 3.5-5.1; Units: MEQ/L; Status: F Test: CHLORIDE LEVEL; Value: 107; Range: 98-107; Units: MEQ/L; Status: F Test: CARBON DIOXIDE LEVEL; Value: 26; Range: 21-32; Units: MEQ/L; Status: F Test: ANION GAP; Value: 9; Range: 8-16; Units: MEQ/L; Status: F Test: CALCIUM LEVEL; Value: 9.0; Range: 8.5-10.1; Units: MG/DL; Status: F Lab Order: Complete Blood Count; SPEC'M 04/12/16 14:52 Test: WHITE BLOOD COUNT; Value: 6.2; Range: 4.0-10.0; Units: K/mm3; Status: F Test: RED BLOOD COUNT; Value: 4.94; Range: 4.30-6.10; Units: M/mm3; Status: F Test: HEMOGLOBIN; Value: 15.6; Range: 14.0-18.0; Units: g/dl; Status: F Test: HEMATOCRIT; Value: 44.6; Range: 42.0-52.0; Units: %; Status: F Test: MEAN CORPUSCULAR VOLUME; Value: 90.1; Range: 80.0-96.0; Units: fl; Status: F Test: MEAN CORPUSCULAR HEMOGLOBIN; Value: 31.6; Range: 27.0-33.0; Units: pg; Status: F Test: MEAN CORPUSCULAR HGB CONC; Value: 35.1; Range: 32.0-36.5; Units: g/dl; Status: F Test: RED CELL DISTRIBUTION WIDTH; Value: 12.6; Range: 11.5-14.5; Units: %; Status: F Test: PLATELET COUNT, AUTOMATED; Value: 271; Range: 150-450; Units: k/mm3; Status: F Lab Order: Drug Eval Toxicology ED Only; SPEC'M 04/12/16 15:36 Test: AMPHETAMINES LEVEL URINE; Value: NEGATIVE; Range: NEGATIVE; Status: F Test: BARBITURATES URINE; Value: NEGATIVE; Range: NEGATIVE; Status: F Test: BENZODIAZEPINES URINE; Value: NEGATIVE; Range: NEGATIVE; Status: F Test: CANNABINOIDS URINE; Value: NEGATIVE; Range: NEGATIVE; Status: F Test: COCAINE METABOLITE URINE; Value: NEGATIVE; Range: NEGATIVE; Status: F Test: METHADONE URINE; Value: NEGATIVE; Range: NEGATIVE; Status: F Test: OPIATES URINE; Value: NEGATIVE; Range: NEGATIVE; Status: F Test: TRICYCLIC ANTIDEPRESS URINE; Value: NEGATIVE; Range: NEGATIVE; Status: F Test Note: ; ALL PRESUMPTIVE POSITIVE FINDINGS ARE UNCONFIRMED NORMAL VALUES THRESHOLD IN NG/ML AMPHETAMINES 1000 METHAMPHETAMINES 1000 BARBITURATES 300 BENZODIAZEPINES 300 CANNABINOIDS (THC) 50 COCAINE METABOLITE 300 METHADONE 300 OPIATES 300 PHENCYCLIDINE 25 TRICYCLIC ANTIDEPRESSANTS 1000 RESULTS ARE FOR MEDICAL PURPOSES ONLY. ALL URINE SPECIMENS WILL BE SAVED FOR 3 DAYS. IF CONFIRMATION OF A PRESUMPTIVE POSTIVE SCREEN RESULT IS DESIRED, CALL CHEMISTRY ([phone]) AND REQUEST URINE TO BE SENT TO REFERENCE LAB. FOR A LIST OF CLOSELY RELATED COMPOUNDS PLEASE CALL THE LAB. Lab Order: Ethyl Alcohol (ethanol); SPEC' 04/12/16 14:52 Test: ETHYL ALCOHOL (ETHANOL); Value: < 0.003; Range: 0.000-0.010; Units: %; Status: F Lab Order: Liver Profile; SPEC' 04/12/16 14:52 Test: AST/SGOT; Value: 18; Range: 15-37; Units: U/L; Status: F Test: ALT/SGPT; Value: 23; Range: 12-78; Units: U/L; Status: F Test: ALKALINE PHOSPHATASE; Value: 106; Range: 45-117; Units: U/L; Status: F Test: BILIRUBIN,TOTAL; Value: 0.8; Range: 0.2-1.0; Units: MG/DL; Status: F Test: BILIRUBIN,DIRECT; Value: 0.2; Range: 0.0-0.2; Units: MG/DL; Status: F Test: TOTAL PROTEIN; Value: 8.2; Range: 6.4-8.2; Units: GM/DL; Status: F Test: ALBUMIN; Value: 4.6; Range: 3.2-5.2; Units: GM/DL; Status: F Test: ALBUMIN/GLOBULIN RATIO; Value: 1.28; Range: 1.00-1.93; Status: F Lab Order: Salicylate Level; SPEC' 04/12/16 14:52 Test: SALICYLATE LEVEL; Value: < 1.7; Range: 5.0-30.0; Abnormal: Below low normal; Units: MG/DL; Status: F Lab Order: Thyroid Stimulating Hormone; SPEC' 04/12/16 14:52 Test: THYROID STIMULATING HORMONE; Value: 2.110; Range: 0.463-3.98; Units: uIU/ML; Status: F Radiology Order: EKG-ADULT Test: EKG-ADULT REASON FOR EXAMINATION: dysrhythmia; Stationary ECG Study; [facility] - ED; ; Test Date: 2016-04-12; Pat Name: LUCERO PEREYRA Department:; Room: -; Gender: M 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 cs11 22:16 Admission hand-off: Report called to Chinedu Carr RN at [facility]. mgs 04/13 00:33 Discharge Assessment: Patient awake, alert and oriented x 3. No cognitive and/or rw1 functional deficits noted. Patient verbalized understanding of disposition instructions. patient administered narcotics - no. The following High Risk Discharge criteria are identified: [facility] to [facility] [place] to accompanying personnel Christian Palmer EMT and Pretty Accounts Payable Accountant. Condition: stable. No special radiology studies were completed. 00:36 Patient left the ED. rw1 Signatures: Dispatcher [employer] EDMS Josselin Lerma, BLANCO PSA rb Abram Nunez, PSA PSA Austin Ayala Robert,PIT SLAGMAN PIT SLAGMAN rw1 Quoc Son Brian, MD MD br1 Junaid Maza dpTyrone Perez DO DO cs11 July Gibson mm15 Melissa Elizondo RN RN mk4 Aries Pickett,ROMINA RN mgs Corrections: (The following items were deleted from the chart) 04/12 18:41 18:22 General: Appears in no apparent distress, comfortable, Behavior is cooperative, mk4 dinner tray provided . mk4 Chart Complete MTDD
== END 2016-04-13 00:36 ==
LOC: M ED 15:05
DX: F32.9 Major depressive disorder, single episode, unspecified (principal)
CPT/HCPCS: 80048; 80076; 80306; 84443; 85027; 93005; 99285; G0480